=== PATIENT | female | born 1950 | race Caucasian/White ===

== ENCOUNTER 2016-12-31 04:37 | Observation (INO) ==
[2016-12-31] MEDS ORDERED: *HR* Promethazine 25 MG/ML VIAL IVP PRN (08:39)
[2016-12-31] MEDS ORDERED: Naloxone 0.4 MG/ML INJ IVP PRN (08:39)
[2016-12-31] MEDS ORDERED: Acetaminophen 325 MG TABLET PO PRN (08:39)
[2016-12-31] MEDS ORDERED: *HR* HYDROcodone/Acet 5/325 mg TABLET PO PRN (08:39)
--- NOTE | 2016-12-31 08:46 | Internal Med History&Physical ---
Date of Encounter: 12/31/16 Time of Encounter: 08:30 Assessment and Plan (1) Intractable nausea and vomiting Current visit: Yes Status: Acute Will place the pt into Med Surg for observation Her intractable Nausea / vomiting mostly due to enteritis Also concern for possible partial SBO.. she still has hypoactive BS cont NG tube NPO except ice chips f/u Obstruction series now.. if it improves, and is she does not have lot of secretions through NG tube, will d/c NG tube IV fluids IV analgesics IV antiemetic Qualifiers: Qualified Code(s): R11.2 - Nausea with vomiting, unspecified (2) Enteritis Current visit: No Status: Acute Mostly viral.. however will start her on empirical abx Cipro and Flagyl for now monitor closely (3) Lactic acidosis Current visit: No Status: Acute Due to dehydration cont IVF (4) Diverticulosis Current visit: Yes Status: Acute No signs of diverticulitis Qualifiers: Qualified Code(s): K57.90 - Diverticulosis of intestine, part unspecified, without perforation or abscess without bleeding (5) UTI (urinary tract infection) Current visit: No Status: Acute Abnormal UA - WBC + few bacteria + will f/u on urine cx cont empirical abx Cipro for now Qualifiers: Urinary tract infection type: site unspecified Hematuria presence: without hematuria Qualified Code(s): N39.0 - Urinary tract infection, site not specified Internal Medicine - H&P: HPI Chief complaint: Nausea / vomiting Admitted From: Emergency Dept Plans for Post Hospital Care: Home History of present illness: Ms. Philip is a 66 year old female with known PMH of HTN pt presented to [facility] ER y/d with c/o intractable nausea and vomiting started y/d morning. She also had mild epigastric discomfort. Denied any CP / SOB. Denied any Hematemesis / Melena. She did have diarrhea y/d. Pt had CT of Abd done which showed enteritis, and diverticulosis with out any diverticulitis. However her Stomach distended, so they put NG tube and she had 700 bilious secretions came out. Pt was transferred to out hospital for further care. Currently she is resting comfortably, with NG tube on. Denied any abd pain / cp/ sob. Still feels nauseated, but better than earlier. No BM since last night. Past Med Surg Social Fam HX - Past Medical History Medical history: hyperlipidemia, hypertension Psychiatric history: no psych history - Past Surgical History Surgical History: (x2) - Social History Smoking Status: Former smoker Smokeless Tobacco Status: No Alcohol use: none Drug use: none - Additional Family History Additional family history: Reviewed and non contribuitory to current problem Internal Medicine - H&P: Meds Lisinopril [Zestril] 20 mg PO DAILY 12/31/16 [History] 3 Allergy/AdvReac Type Severity Reaction Status Date / Time No Known Allergies Allergy Verified 12/30/16 22:05 All Systems PM: A 10-system review of systems was performed and is negative for pertinent findings except as documented above in the HPI. Review of systems: All the systems are reviewed everything is benign except the systems and symptoms I mentioned in the history of present illness - Constitutional Vitals: Temp Pulse Resp BP Pulse Ox 98.1 F 82 16 150/83 98 12/31/16 07:45 12/31/16 07:45 12/31/16 07:45 12/31/16 07:45 12/31/16 07:45 General appearance: Present: A&O X 3, no acute distress, answers questions appropriately - Head Head exam: Present: atraumatic, normal inspection - Respiratory Respiratory exam: Present: CTAB. Absent: accessory muscle use, rales, rhonchi, wheezes - Cardiovascular Cardiovascular exam: Present: RRR, +S1, +S2. Absent: diastolic murmur, gallop, rubs, systolic murmur - GI/Abdominal GI/Abdominal exam: Present: hypoactive bowel sounds, soft, no peritoneal signs. Absent: distended, rebound, rigid, tenderness - Extremities Exam Extremities exam: Present: warm, radial pulses palpable and symmetrical. Absent : calf tenderness, cyanotic, pedal edema - Back Exam Back exam: Absent: CVA tenderness (L), CVA tenderness (R) - Neurological Exam Neurological exam: Present: alert, oriented X3 - Psychiatric Psychiatric exam: Present: normal affect, normal mood
[2016-12-31] MEDS: Lisinopril 20 MG TABLET PO SCH (10:13)
[2016-12-31] MEDS: *HR* Morphine 2 MG/ML SYRINGE IVP PRN ×2 (10:13→15:19)
[2016-12-31] MEDS: Pantoprazole 40 MG VIAL IVP SCH (10:13)
[2016-12-31] MEDS: Ondansetron 4 MG/2 ML VIAL IVP PRN ×2 (10:21→18:31)
[2016-12-31] MEDS: 0.9 % Sodium Chloride 1,000 ML IVC SCH (11:01)
[2016-12-31] MEDS: MetroNIDAZOLE 500 MG/100 ML 500 MG/100 ML BAG IVPB SCH ×2 (14:00→18:32)
[2017-01-01] MEDS: MetroNIDAZOLE 500 MG/100 ML 500 MG/100 ML BAG IVPB SCH ×2 (00:33→07:26)
[2017-01-01 05:28] LABS: Basophils % 0.3 %; Eosinophils # 0.2 K/mcL (0.0-0.6); Eosinophils % 1.9 %; Hematocrit 34.7 % (35.3-44.9); Hemoglobin 11.3 g/dL (11.5-15.4); Immature Granulocytes % 0.3 % (0-4); Lymphocytes % 31.5 %; Mean Corpuscular HGB Conc 32.6 g/dL (31.6-35.5); Mean Corpuscular Hemoglobin 30.1 pg (28.0-33.3); Mean Corpuscular Volume 92.5 fL (83.0-100.0); Mean Platelet Volume 9.5 fL (9.4-12.4); Monocytes # 0.8 K/mcL (0.0-1.3); Neutrophils # 5.4 K/mcL (1.6-8.9); Platelet Count 220 K/mcL (140-400); Red Blood Count 3.75 M/mcL (3.82-4.97); Red Cell Distribution Width 13.1 % (11.5-14.5)
[2017-01-01 05:50] LABS: BUN/Creatinine Ratio 24 (6-26); Blood Urea Nitrogen 20 mg/dL (7-20); Calcium 8.1 mg/dL (8.6-10.8); Carbon Dioxide 20 mEq/L (19-29); Chloride 114 mEq/L (98-109); Glucose 90 mg/dL (70-99); Osmolality,Calculated 290 (280-300); Potassium 3.7 mEq/L (3.5-4.5); Sodium 139 mEq/L (136-145); eGFR For African Americans > 60 (> 60); eGFR For Non-African Americans > 60 (> 60)
[2017-01-01] MEDS: 0.9 % Sodium Chloride 1,000 ML IVC SCH ×2 (07:07→07:08)
[2017-01-01] MEDS: Pantoprazole 40 MG VIAL IVP SCH (07:28)
[2017-01-01] MEDS: Lisinopril 20 MG TABLET PO SCH (07:28)
[2017-01-01 10:27] VITALS: BP 153/69
--- NOTE | 2017-01-01 11:32 | Discharge Summary ---
Date of Encounter: 01/01/17 Time of Encounter: 09:35 - Discharge Diagnosis (1) Enteritis Priority: Primary Status: Acute (2) UTI (urinary tract infection) Priority: Secondary Status: Acute Qualifiers: Urinary tract infection type: acute cystitis Hematuria presence: without hematuria Qualified Code(s): N30.00 - Acute cystitis without hematuria (3) Diverticulosis Priority: Secondary Status: Chronic Qualifiers: Diverticulosis site: diverticulosis of large intestine Diverticulosis bleeding: diverticulosis without bleeding Qualified Code(s): K57.30 - Diverticulosis of large intestine without perforation or abscess without bleeding (4) Intractable nausea and vomiting Priority: Secondary Status: Resolved Qualifiers: Vomiting type: unspecified Qualified Code(s): R11.2 - Nausea with vomiting , unspecified - Discharge Medications Prescriptions: Ciprofloxacin [Cipro] 500 mg PO BID #10 tablet metroNIDAZOLE [Flagyl] 500 mg PO TID #15 tablet Home Medications: Lisinopril [Zestril] 20 mg PO DAILY 12/31/16 [History] Ciprofloxacin [Cipro] 500 mg PO BID #10 tablet 01/01/17 [Rx] metroNIDAZOLE [Flagyl] 500 mg PO TID #15 tablet 01/01/17 [Rx] Allergies/Adverse Reactions: 3 Allergy/AdvReac Type Severity Reaction Status Date / Time No Known Allergies Allergy Verified 12/30/16 22:05 Date of admission: 12/31/16 05:37 Primary care physician: PCP NONE Discharging clinician: Marsha Muñoz Anticipated date of discharge: 01/01/17 - Patient Status Disposition: Home, Self-Care Condition: Good Functional capacity at discharge: independent ambulation Overall status at discharge: patient is progressing back to baseline - Discharge Instructions Instructions: Urinary Tract Infection in Women (DC) Follow Up With: NONE,PCP [Primary Care Provider] - (in 1-2 weeks. Patient sees a walk in clinic in [place]. Patient will get with them and have a follow up appt. 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 Philip is a 66 year old female patient with history of hypertension and hyperlipidemia who had presented to [facility] ER with complaints of nausea and vomiting. CT scan of the abdomen and pelvis done in the ER suggested presence of enteritis and diverticulosis without any diverticulitis. She initially had an NG tube with about 700 mL of bilious secretions output. This has since been removed and patient is now feeling much better. She is tolerating diet well and was not having any diarrhea. No further episodes of nausea or vomiting. She will be discharged home today on short course of antibiotic therapy. - Time Spent with Patient Total time spent providing and/or coordinating discharge services: Less than 30 minutes (25 min) - Constitutional Vitals: Temp Pulse Resp BP Pulse Ox 98.5 F 65 14 153/69 93 01/01/17 10:24 01/01/17 10:24 01/01/17 10:24 01/01/17 10:24 01/01/17 10:24 General appearance: Present: A&O X 3, no acute distress, answers questions appropriately - Neck Neck exam general surgery: Present: supple, trachea midline. Absent: lymphadenopathy - Respiratory Respiratory exam: Present: CTAB. Absent: accessory muscle use, rales, rhonchi, wheezes - Cardiovascular Cardiovascular exam: Present: RRR, +S1, +S2. Absent: diastolic murmur, gallop, rubs, systolic murmur - GI/Abdominal GI/Abdominal exam: Present: normal bowel sounds, soft, no peritoneal signs. Absent: distended, tenderness - Extremities Exam Extremities exam: Present: warm, radial pulses palpable and symmetrical. Absent : calf tenderness, cyanotic, pedal edema
== END 2017-01-01 15:43 | disposition home or self-care (01) ==
LOC: 3ANU
PROVIDERS: ADMIT Family Medicine; ATTEND Internal Medicine

== ENCOUNTER 2017-02-01 01:12 | Inpatient (IN) ==
[2017-02-01] MEDS ORDERED: *HR* HYDROmorphone (PF) 1 MG/ML SYRINGE IVP PRN ×2 (04:34→05:26)
[2017-02-01] MEDS ORDERED: *HR* HYDROmorphone (PF) 1 MG/ML SYRINGE ONE (04:40)
--- NOTE | 2017-02-01 04:49 | Internal Med History&Physical ---
Date of Encounter: 02/01/17 Time of Encounter: 04:49 Assessment and Plan (1) Pulmonary embolism Current visit: No Status: Acute Provoked PE due to recent immobilization CTA reveals saddle pulmonary embolism with thrombus involving both upper and lower lobes. Overall clot burden is small to moderate. No CT evidence of right heart strain. Mild subpleural triangular opacity within the left upper lobe likely related to small area of infarct. Echo ordered to eval for right heart strain DVT study pending Continue standard dose Heparin Continue supplemental oxygen Continue close monitoring, patient is at high risk for acute decompensation Qualifiers: Pulmonary embolism type: saddle Chronicity: acute Acute cor pulmonale presence: without acute cor pulmonale Qualified Code(s): I26.92 - Saddle embolus of pulmonary artery without acute cor pulmonale (2) UTI (urinary tract infection) Current visit: No Status: Acute Urine culture pending Continue Rocephin Qualifiers: Urinary tract infection type: acute cystitis Hematuria presence: without hematuria Qualified Code(s): N30.00 - Acute cystitis without hematuria (3) Unintentional weight loss Current visit: Yes Status: Acute Patient reports modifying diet due to recent diverticulosis diagnosis but reports significant 40lbs unintentional weight loss. She denies ever having a colonoscopy. Recommend outpatient colonoscopy Nutrition consulted (4) Diverticulosis Current visit: No Status: Chronic Continue to monitor Qualifiers: Diverticulosis site: diverticulosis of large intestine Diverticulosis bleeding: diverticulosis without bleeding Qualified Code(s): K57.30 - Diverticulosis of large intestine without perforation or abscess without bleeding (5) HTN (hypertension) Current visit: Yes Status: Chronic Continue home Lisinopril Qualifiers: Hypertension type: essential hypertension Qualified Code(s): I10 - Essential (primary) hypertension (6) Obesity (BMI 30.0-34.9) Current visit: Yes Status: Chronic BMI 34.4 (7) DVT prophylaxis Current visit: Yes Status: Acute Continue Heparin drip Internal Medicine - H&P: HPI Chief complaint: CP Admitted From: Home Plans for Post Hospital Care: Home History of present illness: Ms. Philip is a 66 year old female with a PMH of HTN, HLD, obesity, and recent hospitalization 01/01/17 for enteritis and diverticulosis that presented c/o abrupt onset chest pain about 1 hour before arriving to [facility] ED. Pain severity was moderate, dull, ache in the left chest that is worse with exertion. Pain radiated to the left shoulder blade and was decreased with Dilaudid in the ED. Associated symptoms include fever, cough, nausea, vomiting, diaphoresis, sense of impending doom, syncope, palpitations, and right leg swelling. She also reports unintentional 40lbs weight loss in the past 4 weeks since hospital discharge. Patient is a former smoker, reports recent immobilization after quitting her job and has been more sedentary than usual. Patient denies fever, chills, CP, shortness of breath, ad pain, N/V/D/C, dysuria, hematuria, leg trauma, recent travel, or prior coagulopathy or clots. In the ED CTA revealed small nonocclusive saddle embolus extending into lober and subsegmental branches with moderate clot burden and no RV strain. Her saturation is 95% on 2 L nasal cannula at rest. She was started on Heparin drip and transferred to [facility] for further management. Past Med Surg Social Fam HX - Past Medical History Medical history: hyperlipidemia, hypertension Psychiatric history: no psych history - Past Surgical History Surgical History: - Social History Smoking Status: Former smoker Smokeless Tobacco Status: No Alcohol use: none Drug use: none - Family History Mother Living Status: Age at : 42 Cause of : Heart attack Hx Family Cardiac Disorders: Yes Hx Family Endocrine Disorder: Yes Sister Living Status: Still Living Hx Family Cardiac Disorders: Yes Hx Family Endocrine Disorder: Yes Father Living Status: Age at : 70 Hx Family Cardiac Disorders: Yes Internal Medicine - H&P: Meds Lisinopril [Zestril] 20 mg PO DAILY 12/31/16 [History] 3 Allergy/AdvReac Type Severity Reaction Status Date / Time No Known Allergies Allergy Verified 02/01/17 00:12 All Systems PM: A 10-system review of systems was performed and is negative for pertinent findings except as documented above in the HPI. - Constitutional Constitutional: fatigue, weakness, weight loss, no chills, no fever(s) - EENT Eyes: no change in vision Nose, mouth and throat: no nasal congestion, no sinus pressure - Cardiovascular Cardiovascular ROS IM: chest pain, palpitations, no diaphoresis, no dyspnea, no dyspnea on exertion - Respiratory Respiratory: no cough, no dyspnea, no hemoptysis, no wheezing, no chest congestion, no excessive phlegm production - Gastrointestinal Gastrointestinal: no abdominal pain, no constipation, no diarrhea, no hematemesis, no hematochezia, no nausea, no vomiting - Genitourinary Genitourinary: no dysuria, no urinary frequency, no urinary hesitancy, no urinary urgency Menstruation: post menopausal - Musculoskeletal Musculoskeletal ROS IM: back pain, myalgias, no numbness, no tingling - Integumentary Integumentary IM: no erythema, no new lesions, no rash - Neurological Neurological ROS: weakness, no confusion - Psychiatric Psychiatric: anxiety, no depression - Endocrine Endocrine IM: no polydipsia, no polyphagia, no polyuria - Constitutional Vitals: Temp Pulse Resp BP Pulse Ox 98.8 F 62 20 195/99 98 02/01/17 03:41 02/01/17 03:41 02/01/17 03:41 02/01/17 03:41 02/01/17 03:41 General appearance: Present: cooperative, mild distress, A&O X 3, pleasant, obese, answers questions appropriately - Head Head exam: Present: atraumatic, normal inspection, normocephalic - Eye Eye exam: Present: EOMI, PERRL - ENT ENT exam: Present: mucous membranes moist, normal oropharynx - Neck Neck exam general surgery: Present: normal inspection, supple. Absent: tenderness - Respiratory Respiratory exam: Present: CTAB. Absent: accessory muscle use, respiratory distress, wheezes Additional comments: On O2 via [place] - Cardiovascular Cardiovascular exam: Present: RRR, +S1, +S2 - GI/Abdominal GI/Abdominal exam: Present: soft. Absent: distended, guarding, tenderness - Extremities Exam Extremities exam: Present: calf tenderness (right), full ROM, normal capillary refill, pedal edema (1+), warm, radial pulses palpable and symmetrical - Back Exam Back exam: Present: normal inspection, paraspinal tenderness (left subscapular) , tenderness - Neurological Exam Neurological exam: Present: alert, oriented X3, no focal deficits. Absent: altered, facial droop, speech deficit - Psychiatric Psychiatric exam: Present: anxious, normal affect - Skin Skin exam: Present: dry, normal color, warm. Absent: erythema Internal Med - H&P Results - Labs CBC & Chem 7: 02/01/17 04:54 02/01/17 04:54 - EKG Data -: EKG Interpreted by Myself EKG shows normal: sinus rhythm (NSR, LVH, no signs of ischemia), axis, intervals Rate: normal - Impressions CT/CT angio chest IMPRESSION: There is saddle pulmonary embolism with thrombus involving both upper and lower lobes. Overall clot burden is small to moderate. No CT evidence of right heart strain. Mild subpleural triangular opacity within the left upper lobe likely related to small area of infarct. Mild left basilar airspace disease, likely atelectasis. Critical results were called by Dr. Hermila Meyers MD to Marian Don Jennifer on 02/01/2017 at 01:35. D/ / Hermila Meyers MD / Hermila Meyers MD Interpreting Provider: Hermila Meyers MD R #: [id number] XR/XR chest 1V portable IMPRESSION: No acute process. D/ / Hermila Meyers MD / Hermila Meyers MD Interpreting Provider: Hermila Meyers MD
[2017-02-01 05:06] LABS: Bilirubin,Urine Negative (Negative); Blood,Urine Negative (Negative); Clarity,Urine Clear (Clear); Color,Urine Yellow (Yellow); Glucose,Urine (UA) Normal (Normal); Ketones,Urine Negative (Negative); Leukocyte Esterase,Urine Small (Negative); Nitrite,Urine Negative (Negative); Protein,Urine Negative (Neg-Trace); Specific Gravity,Urine > 1.030 (1.010-1.025); Urobilinogen,Urine Normal (Normal)
[2017-02-01 05:08] LABS: Basophils # 0.1 K/mcL (0.0-0.2); Basophils % 0.5 %; Eosinophils # 0.3 K/mcL (0.0-0.6); Eosinophils % 2.5 %; Hematocrit 39.3 % (35.3-44.9); Hemoglobin 13.1 g/dL (11.5-15.4); Immature Granulocytes % 0.4 % (0-4); Lymphocytes # 3.1 K/mcL (0.6-4.6); Lymphocytes % 30.8 %; Mean Corpuscular HGB Conc 33.3 g/dL (31.6-35.5); Mean Corpuscular Hemoglobin 30.1 pg (28.0-33.3); Mean Corpuscular Volume 90.3 fL (83.0-100.0); Mean Platelet Volume 9.9 fL (9.4-12.4); Monocytes # 0.7 K/mcL (0.0-1.3); Monocytes % 7.4 %; Neutrophils # 5.9 K/mcL (1.6-8.9); Platelet Count 221 K/mcL (140-400); Red Blood Count 4.35 M/mcL (3.82-4.97); Red Cell Distribution Width 12.9 % (11.5-14.5); Segmented Neutrophils % 58.4 %
[2017-02-01 05:09] LABS: Bacteria,Urine None Seen per hpf (None-Few); Hyaline Casts,Urine None Seen per lpf (None-Few); RBC,Urine 0-3 per hpf (0-3); Squamous Epithelial Cell,Urine Many per lpf (None-Few)
[2017-02-01 05:18] LABS: BUN/Creatinine Ratio 25 (6-26); Blood Urea Nitrogen 19 mg/dL (7-20); Calcium 8.8 mg/dL (8.6-10.8); Carbon Dioxide 22 mEq/L (19-29); Chloride 111 mEq/L (98-109); Glucose 99 mg/dL (70-99); Osmolality,Calculated 292 (280-300); Potassium 3.9 mEq/L (3.5-4.5); Sodium 140 mEq/L (136-145); eGFR For African Americans > 60 (> 60); eGFR For Non-African Americans > 60 (> 60)
[2017-02-01 05:25] LABS: Activated Partial Thrombo Time 152.3 Seconds (26.0-36.0)
[2017-02-01] MEDS ORDERED: Ketorolac 30 MG/ML VIAL IVP ONE (05:25)
[2017-02-01 05:32] LABS: Heparin anti-factor XA UFH 0.83 IU/mL (0.30-0.70)
[2017-02-01] MEDS ORDERED: Naloxone 0.4 MG/ML INJ IVP PRN (05:42)
[2017-02-01] MEDS: Famotidine 20 MG/2 ML VIAL IVP SCH ×2 (06:09→17:10)
[2017-02-01] MEDS: Heparin 25,000 UNIT/500 ML D5W 25,000 UNIT/500 ML MLS IVC SCH (06:21)
--- NOTE | 2017-02-01 07:03 | Event Note ---
Date of Encounter: 02/01/17 Time of Encounter: 07:01 Patient seen and examined with medical record assistant. Provoked PE. Recent hospitalization 1 month ago. Also past month she lost her job and has been more sedentry. Will treat for 3 month of anticoagulants. She is requiring 2 L O2, will check for home O2 requirements on DC. She has quite significant ammount of pain and she is getting dilaudid for that. Will check echocardiogram. She is full code.
[2017-02-01] MEDS: Lisinopril 20 MG TABLET PO SCH (08:53)
[2017-02-01] MEDS: Ondansetron 4 MG/2 ML VIAL IVP PRN ×2 (08:53→18:15)
[2017-02-01] MEDS: Acetaminophen 325 MG TABLET PO PRN ×2 (13:15→19:11)
[2017-02-01] MEDS: *HR* Heparin 5,000 UNIT/ML VIAL IVP PRN (13:15)
[2017-02-01] MEDS: amLODIPine 5 MG TABLET PO SCH (13:15)
[2017-02-01 19:21] LABS: Activated Partial Thrombo Time 129.3 Seconds (26.0-36.0)
[2017-02-01 19:51] LABS: Heparin anti-factor XA UFH 0.81 IU/mL (0.30-0.70)
[2017-02-02 03:05] LABS: Basophils % 0.3 %; Eosinophils % 0.2 %; Hematocrit 38.7 % (35.3-44.9); Immature Granulocytes % 0.2 % (0-4); Lymphocytes # 1.9 K/mcL (0.6-4.6); Lymphocytes % 21.9 %; Mean Corpuscular HGB Conc 33.6 g/dL (31.6-35.5); Mean Corpuscular Volume 89.2 fL (83.0-100.0); Mean Platelet Volume 9.7 fL (9.4-12.4); Monocytes # 0.5 K/mcL (0.0-1.3); Monocytes % 5.1 %; Neutrophils # 6.4 K/mcL (1.6-8.9); Platelet Count 241 K/mcL (140-400); Red Blood Count 4.34 M/mcL (3.82-4.97); Red Cell Distribution Width 13.2 % (11.5-14.5); Segmented Neutrophils % 72.3 %
[2017-02-02 03:11] LABS: INR 1.2; Prothrombin Time 12.6 Seconds (9.4-12.1)
[2017-02-02 03:24] LABS: BUN/Creatinine Ratio 23 (6-26); Blood Urea Nitrogen 17 mg/dL (7-20); Calcium 9.2 mg/dL (8.6-10.8); Carbon Dioxide 22 mEq/L (19-29); Chloride 107 mEq/L (98-109); Glucose 119 mg/dL (70-99); Osmolality,Calculated 289 (280-300); Sodium 138 mEq/L (136-145); eGFR For African Americans > 60 (> 60); eGFR For Non-African Americans > 60 (> 60)
[2017-02-02] MEDS: Famotidine 20 MG/2 ML VIAL IVP SCH (06:31)
[2017-02-02] MEDS: amLODIPine 5 MG TABLET PO SCH (08:14)
[2017-02-02] MEDS: Lisinopril 20 MG TABLET PO SCH (08:14)
[2017-02-02] MEDS: Acetaminophen 325 MG TABLET PO PRN ×2 (08:17→23:20)
[2017-02-02] MEDS: Ondansetron 4 MG/2 ML VIAL IVP PRN (09:06)
[2017-02-02 09:46] LABS: INR 1.1; Prothrombin Time 12.4 Seconds (9.4-12.1)
[2017-02-02] MEDS: *HR* Heparin 5,000 UNIT/ML VIAL IVP PRN ×2 (10:55→17:40)
[2017-02-02] MEDS ORDERED: Warfarin perPT PO PRN (15:19)
[2017-02-02] MEDS: Heparin 25,000 UNIT/500 ML D5W 25,000 UNIT/500 ML MLS IVC SCH (15:55)
[2017-02-02] MEDS: Famotidine 20 MG TABLET PO SCH (17:40)
[2017-02-02] MEDS: *HR* Warfarin 5 MG TABLET PO SCH (17:40)
--- NOTE | 2017-02-02 17:59 | Internal Med Progress Note ---
Date of Encounter: 02/02/17 Time of Encounter: 11:30 - Assessment and plan (1) Pulmonary embolism Current Visit: Yes Status: Acute Assessment and plan: Acute saddle pulmonary embolism with thrombus involving both upper and lower lobes - possibly due to recent hospitalization and recent sedentary lifestyle Continue IV heparin, Coumadin Monitor PT/INR Echocardiogram - LVEF 60%, mild diastolic dysfunction, normal RV structure and function US Doppler - acute right popliteal and posterior tibial vein DVT Cardiac telemetry, continuous pulse ox, monitor closely, labs in a.m. Qualifiers: Pulmonary embolism type: saddle Chronicity: acute Acute cor pulmonale presence: without acute cor pulmonale Qualified Code(s): I26.92 - Saddle embolus of pulmonary artery without acute cor pulmonale (2) Acute DVT (deep venous thrombosis) Current Visit: Yes Status: Acute Assessment and plan: Acute right popliteal and right posterior tibial vein DVT Continue IV heparin and Coumadin Qualifiers: DVT location: lower extremity Affected thrombotic vein of extremity: popliteal Laterality: left Qualified Code(s): I82.432 - Acute embolism and thrombosis of left popliteal vein (3) UTI (urinary tract infection) Current Visit: No Status: Acute Assessment and plan: Acute cystitis, present on admission Continue empiric IV Rocephin Cultures pending Qualifiers: Urinary tract infection type: acute cystitis Hematuria presence: without hematuria Qualified Code(s): N30.00 - Acute cystitis without hematuria (4) HTN (hypertension) Current Visit: Yes Status: Chronic Assessment and plan: Essential hypertension, controlled, monitor Continue hydralazine, Norvasc, Zestril Qualifiers: Hypertension type: essential hypertension Qualified Code(s): I10 - Essential (primary) hypertension (5) Unintentional weight loss Current Visit: Yes Status: Acute Assessment and plan: Patient reports modifying diet due to recent diverticulosis diagnosis but reports significant 40lbs unintentional weight loss. She denies ever having a colonoscopy. Recommend outpatient colonoscopy Nutrition consulted - Time Spent With Patient 25 - 35 minutes - Subjective Interval history: Examined this morning. Patient is awake and alert. Not in any distress. Denies chest pain or shortness of breath. Hemodynamically stable. No fever. Patient states she feels better. Admitted for acute PE and acute DVT. No other acute events or complaints. - Constitutional Vitals: Temp Pulse Resp BP Pulse Ox 98.3 F 72 18 153/87 97 02/02/17 16:25 02/02/17 16:28 02/02/17 16:25 02/02/17 16:25 02/02/17 16:25 General appearance: Present: cooperative, mild distress, A&O X 3, pleasant, obese, answers questions appropriately - Head Head exam: Present: atraumatic - Eye Eye exam: Present: EOMI - ENT ENT exam: Present: mucous membranes moist - Respiratory Respiratory exam: Present: CTAB. Absent: rales, rhonchi, wheezes, tachypnea - Cardiovascular Cardiovascular exam: Present: RRR, +S1, +S2 - GI/Abdominal GI/Abdominal exam: Present: soft. Absent: distended, firm, guarding, tenderness - Extremities Exam Extremities exam: Present: calf tenderness (Mild right calf tenderness), radial pulses palpable and symmetrical. Absent: cyanotic, pedal edema - Neurological Exam Neurological exam: Present: alert, oriented X3, no focal deficits. Absent: facial droop, speech deficit Internal Medicine: Result - Labs CBC & Chem 7: 02/02/17 02:38 02/02/17 02:38 Labs: Short CBC 02/02/17 Range/Units 02:38 WBC 8.8 (4.3-11.1) K/mcL Hgb 13.0 (11.5-15.4) g/dL Hct 38.7 (35.3-44.9) % Plt Count 241 (140-400) K/mcL Neutrophils # 6.4 (1.6-8.9) K/mcL BMP 02/02/17 02:38 Sodium 138 Potassium 4.0 Chloride 107 Carbon Dioxide 22 BUN 17 Creatinine 0.75 Glucose 119 H Calcium 9.2 - ABG Interpretation ABG results: PT/INR, D-dimer PT 12.4 Seconds (9.4-12.1) H 02/02/17 09:01 - Impressions Impressions Echocardiogram 02/01/17 06:01 Impressions: LVEF 60%. Mild left ventricular diastolic dysfunction. Normal right ventricular structure and function. Mild aortic regurgitation. Mild mitral regurgitation. Mild tricuspid regurgitation. Mild pulmonary hypertension. Left Ventricular Wall Motion: Rest Echo Findings All wall segments showed normal motion. Findings: Study Quality * Technically adequate exam. ECG Findings * Normal sinus rhythm. Left Ventricle * LVEF 60%. * Normal LV chamber size, wall thickness and function. * Mild left ventricular diastolic dysfunction. Right Ventricle * Normal right ventricular structure and function. Left Atrium * Normal left atrial size. Right Atrium * Normal right atrial size. Aortic Valve * Trileaflet aortic valve. * Normal aortic valve structure. * No aortic stenosis. * Mild aortic regurgitation. Mitral Valve * Normal mitral valve structure. * No mitral stenosis. * Mild mitral regurgitation. Tricuspid Valve * Normal tricuspid valve structure. * Mild tricuspid regurgitation. * Estimated RA pressure is 8 mmHg. * Estimated RVSP is 44 mmHg. * Mild pulmonary hypertension. Pulmonic Valve * Pulmonic valve is not well visualized. * No pulmonic stenosis. * No pulmonic regurgitation. Pulmonary Artery * Pulmonary artery not well visualized. Aorta * Normally sized aortic root. Pericardium * There is no pericardial effusion present. Interatrial Septum * No evidence of PFO by color Doppler. IVC * The IVC is not dilated. * < 50% respiratory change. Consult Discharge Plan - Plan Referrals: Shanel Blakely [employer] P[employer] MACHINE OPERATOR [Advanced Practice Nurse] - 02/17/17 2:00 pm (YOU WILL RECEIVE A NEW PATIENT PACKET IN THE MAIL, PLEASE FILL THIS OUT AND TAKE WITH YOU TO YOUR APPOINTMENT. PLEASE TAKE INS. CARD, PICTURE ID, AND ALL MEDICATIONS IN THE BOTTLES. TAKE YOUR DISCHARGE INSTRUCTIONS WITH YOU TO YOUR APPOINTMENT. SHOW UP 15 MINS. EARLY. IF YOU HAVE TO CANCEL PLEASE CALL . THANKS)
[2017-02-03] MEDS: Famotidine 20 MG TABLET PO SCH ×2 (06:30→17:20)
[2017-02-03 08:09] LABS: INR 1.2; Prothrombin Time 13.5 Seconds (9.4-12.1)
[2017-02-03] MEDS: Lisinopril 20 MG TABLET PO SCH (08:23)
[2017-02-03] MEDS: amLODIPine 5 MG TABLET PO SCH (08:24)
[2017-02-03 08:35] LABS: Activated Partial Thrombo Time 137.6 Seconds (26.0-36.0)
[2017-02-03 08:37] LABS: Heparin anti-factor XA UFH 0.85 IU/mL (0.30-0.70)
--- NOTE | 2017-02-03 15:30 | Internal Med Progress Note ---
Date of Encounter: 02/03/17 Time of Encounter: 10:00 - Assessment and plan (1) Pulmonary embolism Current Visit: Yes Status: Acute Assessment and plan: Acute saddle pulmonary embolism with thrombus involving both upper and lower lobes - possibly due to recent hospitalization and recent sedentary lifestyle Continue IV Heparin, Coumadin Monitor PT/INR - awaiting therapeutic INR Echocardiogram - LVEF 60%, mild diastolic dysfunction, normal RV structure and function US Doppler - acute right popliteal and posterior tibial vein DVT Cardiac telemetry, continuous pulse ox, monitor closely, labs in a.m. Qualifiers: Pulmonary embolism type: saddle Chronicity: acute Acute cor pulmonale presence: without acute cor pulmonale Qualified Code(s): I26.92 - Saddle embolus of pulmonary artery without acute cor pulmonale (2) Acute DVT (deep venous thrombosis) Current Visit: Yes Status: Acute Assessment and plan: Acute right popliteal and right posterior tibial vein DVT Continue IV heparin and Coumadin Monitor PT/INR Qualifiers: DVT location: lower extremity Affected thrombotic vein of extremity: popliteal Laterality: left Qualified Code(s): I82.432 - Acute embolism and thrombosis of left popliteal vein (3) UTI (urinary tract infection) Current Visit: No Status: Acute Assessment and plan: Acute cystitis, present on admission Continue empiric IV Rocephin Cultures - grossly mixed, unable to interpret Qualifiers: Urinary tract infection type: acute cystitis Hematuria presence: without hematuria Qualified Code(s): N30.00 - Acute cystitis without hematuria (4) HTN (hypertension) Current Visit: Yes Status: Chronic Assessment and plan: Essential hypertension, controlled, monitor Continue Hydralazine, Norvasc, Zestril Qualifiers: Hypertension type: essential hypertension Qualified Code(s): I10 - Essential (primary) hypertension (5) Unintentional weight loss Current Visit: Yes Status: Acute Assessment and plan: Patient reports modifying diet due to recent diverticulosis diagnosis but reports significant 40lbs unintentional weight loss. She denies ever having a colonoscopy, Recommend outpatient colonoscopy Nutrition consulted - Time Spent With Patient 25 - 35 minutes - Subjective Interval history: Examined this morning. Patient is awake and alert. Not in any distress. Denies chest pain or shortness of breath. Tolerating oral diet well. Ambulating well. Hemodynamically stable. No fever. Patient states she feels better. Admitted for acute PE and acute DVT. Awaiting therapeutic INR. No other acute events or complaints. - Constitutional Vitals: Temp Pulse Resp BP Pulse Ox 97.7 F 82 18 114/77 95 02/03/17 11:23 02/03/17 11:23 02/03/17 11:23 02/03/17 11:23 02/03/17 11:23 General appearance: Present: cooperative, mild distress, A&O X 3, pleasant, obese, answers questions appropriately - Head Head exam: Present: atraumatic - Eye Eye exam: Present: EOMI - ENT ENT exam: Present: mucous membranes moist - Respiratory Respiratory exam: Present: CTAB. Absent: rales, rhonchi, wheezes, tachypnea - Cardiovascular Cardiovascular exam: Present: RRR, +S1, +S2 - GI/Abdominal GI/Abdominal exam: Present: soft. Absent: distended, firm, guarding, tenderness - Extremities Exam Extremities exam: Present: pedal edema (Bilateral lower leg 1+ edema). Absent: calf tenderness, cyanotic, radial pulses palpable and symmetrical - Neurological Exam Neurological exam: Present: alert, oriented X3, no focal deficits. Absent: facial droop, speech deficit Internal Medicine: Result - Labs CBC & Chem 7: 02/02/17 02:38 02/02/17 02:38 - ABG Interpretation ABG results: PT/INR, D-dimer PT 13.5 Seconds (9.4-12.1) H 02/03/17 07:27 Consult Discharge Plan - Plan Referrals: Shanel Blakely EXPERIMENTAL ROCKETSLED MECHANIC [Advanced Practice Nurse] - 02/17/17 2:00 pm (YOU WILL RECEIVE A NEW PATIENT PACKET IN THE MAIL, PLEASE FILL THIS OUT AND TAKE WITH YOU TO YOUR APPOINTMENT. PLEASE TAKE INS. CARD, PICTURE ID, AND ALL MEDICATIONS IN THE BOTTLES. TAKE YOUR DISCHARGE INSTRUCTIONS WITH YOU TO YOUR APPOINTMENT. SHOW UP 15 MINS. EARLY. IF YOU HAVE TO CANCEL PLEASE CALL . THANKS)
[2017-02-03] MEDS: *HR* Warfarin 5 MG TABLET PO SCH (17:20)
[2017-02-03] MEDS: *HR* Heparin 5,000 UNIT/ML VIAL IVP PRN (18:35)
[2017-02-04 01:05] LABS: INR 1.3; Prothrombin Time 14.5 Seconds (9.4-12.1)
[2017-02-04 01:21] LABS: Activated Partial Thrombo Time 151.6 Seconds (26.0-36.0)
[2017-02-04 01:26] LABS: Heparin anti-factor XA UFH 0.77 IU/mL (0.30-0.70)
[2017-02-04] MEDS: Heparin 25,000 UNIT/500 ML D5W 25,000 UNIT/500 ML MLS IVC SCH (05:13)
[2017-02-04] MEDS: Famotidine 20 MG TABLET PO SCH ×2 (05:20→17:13)
[2017-02-04] MEDS: amLODIPine 5 MG TABLET PO SCH (08:59)
[2017-02-04] MEDS: Lisinopril 20 MG TABLET PO SCH (08:59)
[2017-02-04] MEDS: *HR* Warfarin 5 MG TABLET PO SCH (17:13)
[2017-02-04] MEDS: *HR* Heparin 5,000 UNIT/ML VIAL IVP PRN (18:40)
--- NOTE | 2017-02-04 19:06 | Internal Med Progress Note ---
Date of Encounter: 02/04/17 Time of Encounter: 09:45 - Assessment and plan (1) Pulmonary embolism Current Visit: Yes Status: Acute Assessment and plan: Acute saddle pulmonary embolism with thrombus involving both upper and lower lobes - possibly due to recent hospitalization and recent sedentary lifestyle Continue IV Heparin, Coumadin Monitor PT/INR - awaiting therapeutic INR Echocardiogram - LVEF 60%, mild diastolic dysfunction, normal RV structure and function US Doppler - acute right popliteal and posterior tibial vein DVT Cardiac telemetry, continuous pulse ox, monitor closely, labs in a.m., pharmacy to dose Coumadin Qualifiers: Pulmonary embolism type: saddle Chronicity: acute Acute cor pulmonale presence: without acute cor pulmonale Qualified Code(s): I26.92 - Saddle embolus of pulmonary artery without acute cor pulmonale (2) Acute DVT (deep venous thrombosis) Current Visit: Yes Status: Acute Assessment and plan: Acute right popliteal and right posterior tibial vein DVT Continue IV heparin and Coumadin Monitor PT/INR Qualifiers: DVT location: lower extremity Affected thrombotic vein of extremity: popliteal Laterality: left Qualified Code(s): I82.432 - Acute embolism and thrombosis of left popliteal vein (3) UTI (urinary tract infection) Current Visit: No Status: Acute Assessment and plan: Acute cystitis, present on admission - asymptomatic 3 doses of empiric IV Rocephin given Cultures - grossly mixed, unable to interpret Qualifiers: Urinary tract infection type: acute cystitis Hematuria presence: without hematuria Qualified Code(s): N30.00 - Acute cystitis without hematuria (4) HTN (hypertension) Current Visit: Yes Status: Chronic Assessment and plan: Essential hypertension, controlled, monitor Continue Hydralazine, Norvasc, Zestril Qualifiers: Hypertension type: essential hypertension Qualified Code(s): I10 - Essential (primary) hypertension (5) Unintentional weight loss Current Visit: Yes Status: Acute Assessment and plan: Patient reports modifying diet due to recent diverticulosis diagnosis but reports significant 40lbs unintentional weight loss. She denies ever having a colonoscopy, Recommend outpatient colonoscopy Nutrition consulted - Time Spent With Patient 25 - 35 minutes - Subjective Interval history: Examined this morning. Patient is awake and alert. Not in any distress. Denies chest pain or shortness of breath. Tolerating oral diet well. Ambulating well. Hemodynamically stable. No fever. Admitted for acute PE and acute DVT. Awaiting therapeutic INR. No other acute events or complaints. States she feels better. - Constitutional Vitals: Temp Pulse Resp BP Pulse Ox 98.4 F 81 20 137/84 97 02/04/17 16:27 02/04/17 16:27 02/04/17 16:27 02/04/17 16:27 02/04/17 16:27 General appearance: Present: cooperative, mild distress, A&O X 3, pleasant, obese, answers questions appropriately - Head Head exam: Present: atraumatic - Eye Eye exam: Present: EOMI - ENT ENT exam: Present: mucous membranes moist - Respiratory Respiratory exam: Present: CTAB. Absent: rales, rhonchi, wheezes, tachypnea - Cardiovascular Cardiovascular exam: Present: RRR, +S1, +S2 - GI/Abdominal GI/Abdominal exam: Present: soft. Absent: distended, firm, guarding, tenderness - Extremities Exam Extremities exam: Present: radial pulses palpable and symmetrical. Absent: calf tenderness, cyanotic, pedal edema - Neurological Exam Neurological exam: Present: alert, oriented X3, no focal deficits. Absent: facial droop, speech deficit Internal Medicine: Result - Labs CBC & Chem 7: 02/02/17 02:38 02/02/17 02:38 - ABG Interpretation ABG results: PT/INR, D-dimer PT 14.5 Seconds (9.4-12.1) H 02/04/17 00:30 Consult Discharge Plan - Plan Referrals: Shanel Blakely DELICATESSEN CLERK [Advanced Practice Nurse] - 02/17/17 2:00 pm (YOU WILL RECEIVE A NEW PATIENT PACKET IN THE MAIL, PLEASE FILL THIS OUT AND TAKE WITH YOU TO YOUR APPOINTMENT. PLEASE TAKE INS. CARD, PICTURE ID, AND ALL MEDICATIONS IN THE BOTTLES. TAKE YOUR DISCHARGE INSTRUCTIONS WITH YOU TO YOUR APPOINTMENT. SHOW UP 15 MINS. EARLY. IF YOU HAVE TO CANCEL PLEASE CALL [phone]. THANKS)
[2017-02-05] MEDS: Famotidine 20 MG TABLET PO SCH ×2 (06:05→17:17)
[2017-02-05 06:42] LABS: Prothrombin Time 21.7 Seconds (9.4-12.1)
[2017-02-05] MEDS: amLODIPine 5 MG TABLET PO SCH (08:04)
[2017-02-05] MEDS: Lisinopril 20 MG TABLET PO SCH (08:04)
--- NOTE | 2017-02-05 13:57 | Internal Med Progress Note ---
Date of Encounter: 02/05/17 Time of Encounter: 09:10 - Assessment and plan (1) Pulmonary embolism Current Visit: Yes Status: Acute Assessment and plan: Acute saddle pulmonary embolism with thrombus involving both upper and lower lobes - possibly due to recent hospitalization and recent sedentary lifestyle - patient is currently asymptomatic Continue IV Heparin, Coumadin Monitor PT/INR - awaiting two therapeutic INRs Echocardiogram - LVEF 60%, mild diastolic dysfunction, normal RV structure and function US Doppler - acute right popliteal and posterior tibial vein DVT Cardiac telemetry, continuous pulse ox, monitor closely, labs in a.m., pharmacy to dose Coumadin Anticipate discharge home soon Qualifiers: Pulmonary embolism type: saddle Chronicity: acute Acute cor pulmonale presence: without acute cor pulmonale Qualified Code(s): I26.92 - Saddle embolus of pulmonary artery without acute cor pulmonale (2) Acute DVT (deep venous thrombosis) Current Visit: Yes Status: Acute Assessment and plan: Acute right popliteal and right posterior tibial vein DVT Continue IV Heparin and Coumadin Monitor PT/INR, anticipate discharge home soon Qualifiers: DVT location: lower extremity Affected thrombotic vein of extremity: popliteal Laterality: left Qualified Code(s): I82.432 - Acute embolism and thrombosis of left popliteal vein (3) UTI (urinary tract infection) Current Visit: No Status: Acute Assessment and plan: Acute cystitis, present on admission - asymptomatic empiric IV Rocephin three doses given Cultures - grossly mixed, unable to interpret Qualifiers: Urinary tract infection type: acute cystitis Hematuria presence: without hematuria Qualified Code(s): N30.00 - Acute cystitis without hematuria (4) HTN (hypertension) Current Visit: Yes Status: Chronic Assessment and plan: Essential hypertension, controlled, monitor Continue Hydralazine, Norvasc, Zestril Qualifiers: Hypertension type: essential hypertension Qualified Code(s): I10 - Essential (primary) hypertension (5) Unintentional weight loss Current Visit: Yes Status: Acute Assessment and plan: Patient reports modifying diet due to recent diverticulosis diagnosis but reports significant 40lbs unintentional weight loss. She denies ever having a colonoscopy, Recommend outpatient colonoscopy Nutrition consulted - Time Spent With Patient 25 - 35 minutes - Subjective Interval history: Examined this morning. Patient is awake and alert. Not in any distress. Denies chest pain or shortness of breath. Tolerating oral diet well. Ambulating well. Hemodynamically stable. No fever. Admitted for acute PE and acute DVT. INR is therapeutic today. No other acute events or complaints. States she feels better. Anticipate discharge soon. - Constitutional Vitals: Temp Pulse Resp BP Pulse Ox 98.0 F 74 18 130/83 96 02/05/17 10:51 02/05/17 10:51 02/05/17 10:51 02/05/17 10:51 02/05/17 10:51 General appearance: Present: cooperative, A&O X 3, pleasant, no acute distress, obese, answers questions appropriately - Head Head exam: Present: atraumatic - Eye Eye exam: Present: EOMI - ENT ENT exam: Present: mucous membranes moist - Respiratory Respiratory exam: Present: CTAB. Absent: rales, rhonchi, wheezes, tachypnea - Cardiovascular Cardiovascular exam: Present: RRR, +S1, +S2 - GI/Abdominal GI/Abdominal exam: Present: soft. Absent: distended, firm, guarding, tenderness - Extremities Exam Extremities exam: Present: radial pulses palpable and symmetrical. Absent: calf tenderness, cyanotic, pedal edema - Neurological Exam Neurological exam: Present: alert, oriented X3, no focal deficits. Absent: facial droop, speech deficit Internal Medicine: Result - Labs CBC & Chem 7: 02/02/17 02:38 02/02/17 02:38 - ABG Interpretation ABG results: PT/INR, D-dimer PT 21.7 Seconds (9.4-12.1) H 02/05/17 06:25 Consult Discharge Plan - Plan Referrals: Shanel Blakely ANIMAL FEEDER [Advanced Practice Nurse] - 02/09/17 2:00 pm (YOU WILL RECEIVE A NEW PATIENT PACKET IN THE MAIL, PLEASE FILL THIS OUT AND TAKE WITH YOU TO YOUR APPOINTMENT. PLEASE TAKE INS. CARD, PICTURE ID, AND ALL MEDICATIONS IN THE BOTTLES. TAKE YOUR DISCHARGE INSTRUCTIONS WITH YOU TO YOUR APPOINTMENT. SHOW UP 30 MINS. EARLY. IF YOU HAVE TO CANCEL PLEASE CALL [phone]. THANKS)
[2017-02-05] MEDS: Heparin 25,000 UNIT/500 ML D5W 25,000 UNIT/500 ML MLS IVC SCH (16:10)
[2017-02-05] MEDS ORDERED: *HR* Warfarin 2.5 MG TABLET PO ONE (18:00)
[2017-02-06 04:55] LABS: INR 2.1; Prothrombin Time 23.2 Seconds (9.4-12.1)
[2017-02-06 05:15] LABS: Heparin anti-factor XA UFH 0.49 IU/mL (0.30-0.70)
[2017-02-06] MEDS: Famotidine 20 MG TABLET PO SCH (06:15)
[2017-02-06] MEDS: Lisinopril 20 MG TABLET PO SCH (08:36)
[2017-02-06] MEDS: amLODIPine 5 MG TABLET PO SCH (08:36)
--- NOTE | 2017-02-06 11:01 | Discharge Summary ---
Date of Encounter: 02/06/17 Time of Encounter: 09:15 - Discharge Diagnosis (1) Pulmonary embolism Priority: Primary Status: Acute Comments: Acute saddle pulmonary embolism with thrombus involving both upper and lower lobes - possibly due to recent hospitalization and recent sedentary lifestyle - patient is currently asymptomatic Continue Coumadin at home Monitor PT/INR - patient now has 2 therapeutic INRs Echocardiogram - LVEF 60%, mild diastolic dysfunction, normal RV structure and function US Doppler - acute right popliteal and posterior tibial vein DVT Monitor PT/INR closely, Coumadin dose to be adjusted by PCP Discharge home today Qualifiers: Pulmonary embolism type: saddle Chronicity: acute Acute cor pulmonale presence: without acute cor pulmonale Qualified Code(s): I26.92 - Saddle embolus of pulmonary artery without acute cor pulmonale (2) Acute DVT (deep venous thrombosis) Priority: Primary Status: Acute Comments: Acute right popliteal and right posterior tibial vein DVT Continue Coumadin 3 mg daily at home Monitor PT/INR regularly Scheduled to follow-up with PCP in 3 days Qualifiers: DVT location: lower extremity Affected thrombotic vein of extremity: popliteal Laterality: left Qualified Code(s): I82.432 - Acute embolism and thrombosis of left popliteal vein (3) UTI (urinary tract infection) Priority: Primary Status: Acute Comments: Acute cystitis, present on admission - asymptomatic empiric IV Rocephin three doses given Cultures - grossly mixed, unable to interpret Qualifiers: Urinary tract infection type: acute cystitis Hematuria presence: without hematuria Qualified Code(s): N30.00 - Acute cystitis without hematuria (4) HTN (hypertension) Priority: Secondary Status: Chronic Comments: Essential hypertension, controlled, monitor Continue Hydralazine, Norvasc, Zestril Qualifiers: Hypertension type: essential hypertension Qualified Code(s): I10 - Essential (primary) hypertension (5) Unintentional weight loss Priority: Primary Status: Acute Comments: Patient reports modifying diet due to recent diverticulosis diagnosis but reports significant 40lbs unintentional weight loss She denies ever having a colonoscopy Recommend outpatient colonoscopy, follow-up with PCP Nutrition consulted - Discharge Medications Prescriptions: amLODIPine [Norvasc] 10 mg PO DAILY #30 tablet Pravastatin Sodium [Pravachol] 20 mg PO HS #30 tablet Warfarin [Coumadin] 3 mg PO 1800 #30 tablet Home Medications: Lisinopril [Zestril] 20 mg PO DAILY 12/31/16 [History] Pravastatin Sodium [Pravachol] 20 mg PO HS #30 tablet 02/06/17 [Rx] Warfarin [Coumadin] 3 mg PO 1800 #30 tablet 02/06/17 [Rx] amLODIPine [Norvasc] 10 mg PO DAILY #30 tablet 02/06/17 [Rx] Allergies/Adverse Reactions: 3 Allergy/AdvReac Type Severity Reaction Status Date / Time No Known Allergies Allergy Verified 02/01/17 00:12 Date of admission: 02/01/17 12:23 Primary care physician: PCP NONE Consults: 02/01/17 04:10 Consult to Nutrition [CONS] Routine Comment: Consulting Provider: NUTRITION Reason for Dietary Consult: MST Score Consult to Assembler Camper [CONS] Routine Reason for SW Consult: Financial concers. Existing medical bills and currently not working d/t injury. Anticipated date of discharge: 02/06/17 - Patient Status Disposition: Home Health Service Condition: Good Functional capacity at discharge: independent ambulation Overall status at discharge: patient is progressing back to baseline - Discharge Instructions Instructions: Warfarin (By mouth), Pravastatin (By mouth), Amlodipine (By mouth ), Pulmonary Embolism (GEN), Chronic Hypertension (GEN), Hyperlipidemia (GEN) Follow Up With: Shanel Blakely CNP [Advanced Practice Nurse] - 02/09/17 2:00 pm (YOU WILL RECEIVE A NEW PATIENT PACKET IN THE MAIL, PLEASE FILL THIS OUT AND TAKE WITH YOU TO YOUR APPOINTMENT. PLEASE TAKE INS. CARD, PICTURE ID, AND ALL MEDICATIONS IN THE BOTTLES. TAKE YOUR DISCHARGE INSTRUCTIONS WITH YOU TO YOUR APPOINTMENT. SHOW UP 30 MINS. EARLY. IF YOU HAVE TO CANCEL PLEASE CALL [phone]. THANKS) - Diet and Activity Activity: increase activity as tolerated, resume usual activities as tolerated Diet: low fat, low cholesterol, low salt diet Hospital course: Ms. Philip is a 66 year old female with past medical history of hypertension, hyperlipidemia and diverticulosis. Patient presented to the ED with complaints of abrupt onset chest pain about one hour prior to arrival in the ED. Pain radiated to the left shoulder blade and improved with IV pain medication. Patient also complained of fever, cough, diaphoresis and palpitations and right leg swelling. Patient also has a history of unintentional weight loss over the past 4 weeks. Patient reports recent immobilization ever since she quit her job and has been more sedentary than usual. CTA chest revealed a saddle pulmonary embolism with thrombus involving both upper and lower lobes with no right heart strain. Patient was started on IV heparin as per protocol. Echocardiogram was done and revealed LVEF 60% with mild diastolic dysfunction with normal RV function. Ultrasound venous Doppler revealed acute thrombosis in the right popliteal and posterior tibial veins. Patient was continued on IV heparin and started on Coumadin as well. Patient now has 2 consecutive therapeutic INRs. She has had IV heparin bridging for 5 days. Patient has been explained about the need to continue Coumadin. She has been set up follow- up with the primary care physician to check her INRs and will adjust her Coumadin dose as needed. Patient is tolerating oral diet well and ambulating well. She had no other acute events or complications during her stay in the hospital. Patient and family have been explained about her condition and plan of care detail. They understood and agreed. No unanswered questions. She is being discharged in stable condition. - Time Spent with Patient Total time spent providing and/or coordinating discharge services: Greater than 30 minutes - Constitutional Vitals: Temp Pulse Resp BP Pulse Ox 97.8 F 59 16 150/89 96 02/06/17 07:57 02/06/17 08:35 02/06/17 07:57 02/06/17 07:57 02/06/17 07:57 General appearance: Present: cooperative, A&O X 3, pleasant, no acute distress, obese, answers questions appropriately - Head Head exam: Present: atraumatic - Eye Eye exam: Present: EOMI - ENT ENT exam: Present: mucous membranes moist - Respiratory Respiratory exam: Present: CTAB. Absent: rales, rhonchi, wheezes, tachypnea - Cardiovascular Cardiovascular exam: Present: RRR, +S1, +S2 - GI/Abdominal GI/Abdominal exam: Present: soft. Absent: distended, firm, guarding, tenderness - Extremities Exam Extremities exam: Present: radial pulses palpable and symmetrical. Absent: calf tenderness, cyanotic, pedal edema - Neurological Exam Neurological exam: Present: alert, oriented X3, no focal deficits. Absent: facial droop, speech deficit
--- NOTE | 2017-02-06 11:09 | Physician Discharge Referral ---
Home Health/Hosp Referral Info Transfer to: Home Health Provider in Charge Post Discharge: PCP - Diagnosis (1) Pulmonary embolism Priority: Primary Status: Acute (2) Acute DVT (deep venous thrombosis) Priority: Primary Status: Acute (3) UTI (urinary tract infection) Priority: Primary Status: Acute (4) HTN (hypertension) Priority: Secondary Status: Chronic (5) Unintentional weight loss Priority: Secondary Status: Acute - Respiratory Orders Smoking Cessation: Smoking cessation has been advised. For more information, call the [place] [employer] Quit Line at 9-146-MPLI-NOW. - Diet/Nutrition Diet/Nutrition Orders: Cardiac - Activity Activity Orders: Ambulate - Services Needed Following services are medically necessary services: Home Health Aide - Transfer Medications Prescriptions: amLODIPine [Norvasc] 10 mg PO DAILY #30 tablet Pravastatin Sodium [Pravachol] 20 mg PO HS #30 tablet Warfarin [Coumadin] 3 mg PO 1800 #30 tablet Home Medications: Lisinopril [Zestril] 20 mg PO DAILY 12/31/16 [History] Pravastatin Sodium [Pravachol] 20 mg PO HS #30 tablet 02/06/17 [Rx] Warfarin [Coumadin] 3 mg PO 1800 #30 tablet 02/06/17 [Rx] amLODIPine [Norvasc] 10 mg PO DAILY #30 tablet 02/06/17 [Rx] Allergies/Adverse Reactions: 3 Allergy/AdvReac Type Severity Reaction Status Date / Time No Known Allergies Allergy Verified 02/01/17 00:12 Certification: Further, I certify that my clinical findings support that this patient is homebound (i.e. absences from home require considerable and taxing effort and are for medical reasons or islam services or infrequently or short duration when for other reasons) because: Homebound Reason: Patient requires assistance of a person or device to safely leave home Attestation: My signature below is to certify that this patient is under my care and that I, or nurse practitioner, or a physician's painter assistant working with me, has a face-to -face encounter with this patient.
[2017-02-06 12:09] VITALS: BP 127/79
[2017-02-06] MEDS: Heparin 25,000 UNIT/500 ML D5W 25,000 UNIT/500 ML MLS IVC SCH (14:54)
[2017-02-06] MEDS ORDERED: *HR* Warfarin 2.5 MG TABLET PO ONE (15:45)
== END 2017-02-06 16:00 | disposition home health service (06) | DRG 176 ==
LOC: 2NNU
PROVIDERS: ADMIT Hospitalist; ATTEND Internal Medicine